=== PATIENT | male | born 1985 | race African-American/Black ===

== ENCOUNTER 2018-08-01 17:01 | Emergency (ER) | payer OTHER ==
[~2018-08-01] VITALS: Ht 185.4 cm; Wt 106.6 kg
[~2018-08-01 17:01] MED LIST: ACETAMINOPHEN-1 EAC1 ORAL; AMOXICILLIN500 M1 PO; AUGMENTIN 875-1 EAC1 ORAL; HYDROXYZINE HCL25 M1 PO; IBUPROFEN600 MG ORAL; LIDOCAINE VISCO20 ML *; NKM; NORCO 5-325 TA1 EAC1 ORAL; PERMETHRIN60 GM TOPIC; PREDNISONE20 MG ORAL
[2018-08-01 17:36] VITALS: BP 117/81
--- NOTE | 2018-08-01 17:48 | Emergency Room Report ---
History of Present Illness General Chief Complaint: Skin Rash/Abscess Source: Patient Present Illness HPI 33-year-old male presents to the emergency department complaining of having generalized itchy rash all over his body 2 days. Denies pain. Patient attributes rash onset after sleeping at a air [place]. Patient not attempted to take any medications to provide relief. Patient denies history of allergies. Pt. denies fevers, chills or swollen tender lymph nodes. Denies lesions/rashes elsewhere on the body. Denies new medications or body washes or creams. Denies swelling of the lips, tongue , throat or airway. Denies wheezing, or shortness of breath. Denies recent travel, recent illness or ill contacts. denies blisters, oral lesions, or sloughing of the skin Allergies: Coded Allergies: No Known Allergies (Unverified , 04/01/15) Patient History Past Medical History: see triage record Past Surgical History: none Pertinent Family History: none Immunizations: UTD Reviewed Nursing Documentation: PMH: Agreed; PSxH: Agreed Nursing Documentation-PMH Past Medical History: No History, Except For Hx Cancer: Yes - Lymphoma Review of Systems All Other Systems: negative except mentioned in HPI Physical Exam Vital Signs Date Time Temp Pulse Resp B/P (MAP) Pulse Ox O2 Delivery O2 Flow Rate FiO2 08/01/18 17:07 98.4 80 21 117/81 (93) 96 Room Air Sp02 EP Interpretation: reviewed, normal General Appearance: no apparent distress, alert, GCS 15, non-toxic Head: normocephalic, atraumatic Eyes: bilateral eye normal inspection, bilateral eye PERRL ENT: hearing grossly normal, no angioedema, normal voice, other Neck: full range of motion, other - no stridor Respiratory: chest non-tender, lungs clear, normal breath sounds, no respiratory distress, no wheezing, speaking full sentences Cardiovascular #1: regular rate, rhythm, no edema Cardiovascular #2: 0 carotid (R), 0 carotid (L), 0 radial (R), 0 radial (L), 0 femoral (R), 0 femoral (L), 0 dorsalis pedis (R), 0 dorsalis pedis (L) Gastrointestinal: non tender, soft, other - urticaria diffuse on torso Musculoskeletal: back normal, gait/station normal, normal range of motion, non- tender Neurologic: alert, oriented x3, responsive, motor strength/tone normal, sensory intact, normal gait, speech normal, grossly normal Psychiatric: judgement/insight normal Skin: normal color, warm/dry, well hydrated, rash - diffuse hives, no blisters or vessicles. Medical Decision Making PA Attestation Dr. Miranda is my supervising Physician whom patient management has been discussed with. Diagnostic Impression: Primary Impression: Full body hives ER Course 33-year-old male presents to the emergency department complaining of having generalized itchy rash all over his body 2 days. Denies pain. Patient attributes rash onset after sleeping at a air [place]. Patient not attempted to take any medications to provide relief. Patient denies history of allergies. Pt. denies fevers, chills or swollen tender lymph nodes. Denies lesions/rashes elsewhere on the body. Denies new medications or body washes or creams. Denies swelling of the lips, tongue , throat or airway. Denies wheezing, or shortness of breath. Denies recent travel, recent illness or ill contacts. denies blisters, oral lesions, or sloughing of the skin Ddx considered but are not limited to cellulitis, scabies, shingles, varicella, dermatitis, urticaria, eczema, tinea, viral exanthem, SJS Vital signs: are WNL, pt. is afebrile H&PE are most consistent with diffuse hives/ generalized allergic reaction No evidence of impending airway compromise or anaphylaxis. ORDERS: none required at this time, the diagnosis is clinical ED INTERVENTIONS: -Prednisone 60mg PO DISCHARGE: At this time pt. is stable for d/c to home. Will provide printed patient care instructions, and any necessary prescriptions. Care plan and follow up instructions have been discussed with the patient prior to discharge. Last Vital Signs Date Time Temp Pulse Resp B/P (MAP) Pulse Ox O2 Delivery O2 Flow Rate FiO2 08/01/18 17:36 98.4 68 21 117/81 96 Room Air Disposition: HOME, SELF-CARE Condition: Stable Scripts Diphenhydramine Hcl (BENADRYL ALLERGY) 25 Mg Tablet 25 MG PO Q6HR, #30 TAB Prov: Meg Duvall 08/01/18 Prednisone* (PREDNISONE*) 20 Mg Tablet 40 MG ORAL DAILY for 5 Days, #10 TAB Prov: Meg Duvall 08/01/18 Departure Forms: Return to Work Return to Work Date: Aug 06, 2018 Work Restrictions: None Other Restrictions: May return Sooner if Symptoms have resolved. Return to Full Activity: Aug 06, 2018 Patient Instructions: Hives, [id number], Rash Additional Instructions: Take medications as directed. Follow up with a Primary Care Provider in 3-5 days, even if your symptoms have resolved. Return sooner to ED if new symptoms occur, or current symptoms become worse. Do not drink alcohol, drive, or operate heavy machinery while taking Benadryl as this may cause drowsiness. - Please note that this Emergency Department Report was dictated using [employer] rep technology software, occasionally this can lead to erroneous entry secondary to interpretation by the dictation equipment. Meg Duvall August 01, 2018 17:48
[2018-08-01] MEDS ORDERED: BENADRYL ALLERG25 M1 PO (17:51)
[2018-08-01] MEDS ORDERED: PREDNISONE20 MG ORAL (17:51)
[2018-08-01 17:59] VITALS: BP 117/81
--- NOTE | 2018-08-01 18:00 | NUR ---
ER DISCHARGE NOTE: Patient is cleared to be discharged per ERMD, pt is aox4, on room air, with stable vital signs. pt was given dc and prescription instructions, pt was able to verbalize understanding. pt is able to ambulate with steady gait. pt took all belongings.
== END 2018-08-01 18:03 | disposition home or self-care (01) ==
LOC: EMR 17:36
DX: L50.9 Urticaria, unspecified (principal); Z85.72 Personal history of non-Hodgkin lymphomas
CPT/HCPCS: 99282; J7512